=== PATIENT | male | born 1975 | race Hispanic/Latino ===

== ENCOUNTER 2018-03-15 10:58 | Emergency (ER) | payer OTHER ==
[~2018-03-15] VITALS: Ht 167.6 cm; Wt 87.5 kg
[2018-03-15] MEDS ORDERED: NEOMYCIN/POLYMYX/BACITR OINT 0.9 GM PKT TOP ONE (11:15)
[2018-03-15] MEDS ORDERED: LIDOCAINE HCL 1% LOCAL INJ 20 ML VIAL INJ ONE (11:15)
[2018-03-15] MEDS ORDERED: INSULIN REGULAR, HUMAN 100 UNIT/1 ML 3ML VIAL SQ ONE (11:45)
--- NOTE | 2018-03-15 12:30 | Diagnostic Imaging Report ---
Exam: Mandible radiograph series - 7 views History: Trauma Comparison: None. Findings: No evidence of displaced fracture or malalignment. The paranasal sinuses appear clear. Impression: No evidence of acute fracture or malalignment in the mandible. Signed by: Dr. Aissatou Corley MD on 03/15/2018 12:26 PM
== END 2018-03-15 13:22 | disposition home or self-care (01) ==
LOC: ER 10:58
DX: S01.81XA Laceration without foreign body of other part of head, initial encounter (principal); W22.8XXA Striking against or struck by other objects, initial encounter; Y99.0 Civilian activity done for income or pay; E11.9 Type 2 diabetes mellitus without complications
CPT/HCPCS: 12052; 36415; 70110; 82948; 99284; J1817; J2001